=== PATIENT | female | born 1945 | race American Indian/Alaskan Native ===

== ENCOUNTER 2018-07-08 05:34 | Outpatient (CLI) | payer MEDICARE, OTHER | END 2018-07-08 05:35 | disposition home or self-care (01) | LOC: CARDIO 05:34 | DX: R94.31 Abnormal electrocardiogram [ECG] [EKG] (principal); I25.10 Atherosclerotic heart disease of native coronary artery without angina pectoris; I34.0 Nonrheumatic mitral (valve) insufficiency; I36.1 Nonrheumatic tricuspid (valve) insufficiency; G89.29 Other chronic pain; M16.31 Unilateral osteoarthritis resulting from hip dysplasia, right hip ==